=== PATIENT | female | born 1985 | race African-American/Black ===

== ENCOUNTER 2018-07-15 13:22 | Emergency (ER) | payer SELFPAY ==
[~2018-07-15] VITALS: Ht 157.5 cm; Wt 82.0 kg
[2018-07-15 13:40] VITALS: BP 111/69
== END 2018-07-15 19:30 | disposition left against medical advice (07) ==
LOC: ER 13:22
DX: Z53.21 Procedure and treatment not carried out due to patient leaving prior to being seen by health care provider (principal)